=== PATIENT | male | born 1955 | race Caucasian/White ===

== ENCOUNTER 2017-02-19 02:38 | Emergency (ER) | payer MEDICARE, MEDICAID ==
[~2017-02-19] VITALS: Ht 177.8 cm; Wt 102.1 kg
[~2017-02-19 02:38] MED LIST: 'PARAFON FORTE500 M1 PO; ACIPHEX20 MG PO; ASPIRIN DELAYE325 MG PO; ASPIRIN325 MG PO; ATIVAN1 MG PO; BACTRIM DS 8001 TA1 PO; BENTYL10 MG PO; BIAXIN500 MG PO; BLOOD PRESSURE PILL; CEPHALEXIN500 M1 PO; CILOXAN 2.5 ML2.5 ML OPH; CIPRO500 MG PO; CIPRODEX 0.3%-7.5 ML OT; CLINDAMYCIN HC300 MG PO; COMBIVENT1 ARO IH; CORDROL20 MG PO; DOXYCYCLINE MO100 MG PO; FLEXERIL10 MG PO; FLONASE ALLERG9.9 ML NAS; GLUCOPHAGE500 MG PO; HYDROCODONE BIT1 T11 PO; IBUPROFEN 30 M800 MG PO; KEFLEX500 MG PO; KETOROLAC10 MG PO; LEVOFLOXACIN500 MG PO; MEDROL DOSEPAK4 MG PO; METFORMIN500 MG PO; NAPROSYN500 MG PO; NORCO 5-325 TA1 EACH PO; NOVOLIN R100 U/ML IJ; PERCOCET 325 MG1 TA2 PO; PERCOCET 325 MG1 TAB PO; PRILOSEC40 MG PO; PROAIR HFA0.09 MG/AC IH; PROTONIX40 MG PO; ROBITUSSIN AC 110 ML PO; ROBITUSSIN-AC480 ML PO; SILVADENE1% TP; TRAMADOL HCL50 MG PO; TRAZODONE100 MG PO; TRICOR48 MG PO; VANCOMYCIN HYDRO1 G1 IV; VENTOLIN 02.5 MG/3 M INH; VIBRAMYCIN100 MG PO; VICODIN ES 7501 TA1 PO; VICTOZA 3-PAK6 MG/ML SC; VICTOZA6 MG/ML SC; VYTORIN 10 MG-11 TA1; XANAX0.25 MG PO; XANAX1 MG PO; ZANTAC 150150 MG PO; ZANTAC150 MG PO; ZESTORETIC 12.51 TA2 PO; ZITHROMAX TRI-500 MG PO; ZITHROMAX Z PA250 MG PO; ZITHROMAX250 MG PO; ZOFRAN ODT4 MG SL; ZYRTEC10 MG PO
[2017-02-19 02:44] VITALS: BP 151/91
[2017-02-19] MEDS ORDERED: HYDROCODONE BIT1 T11 PO (03:58)
[2017-02-19] MEDS ORDERED: NAPROSYN500 MG PO (03:58)
== END 2017-02-19 04:15 | disposition home or self-care (01) ==
LOC: ED 02:38
DX: M26.69 Other specified disorders of temporomandibular joint (principal); E11.9 Type 2 diabetes mellitus without complications; F17.200 Nicotine dependence, unspecified, uncomplicated; Z90.49 Acquired absence of other specified parts of digestive tract; Z96.652 Presence of left artificial knee joint; Z79.899 Other long term (current) drug therapy; Z88.0 Allergy status to penicillin

== ENCOUNTER → 2017-02-28 | Outpatient (CLI) | payer MEDICARE, MEDICAID ==
[~2017-02-28] MED LIST changes: +? CHOLESTEROL MED PO; +ASPIRIN FOR CHI81 MG PO; +TRIAVIL PO
--- NOTE | ~2017-02-28 | ST ---
[place], [place] EXERCISE STRESS TEST REPORT NAME: LISA ARAUJO UNIT #: [id number] ROOM: DOCTOR: ANNE ACEVEDO,WILLIAN Strong BIRTHDATE: [birth year] DOS: The patient is a 61-year-old gentleman, 68 inches tall, weighing 232 pounds. The patient's stress test was performed because he is going for surgery under general anesthesia and he has abnormal baseline EKG. The patient's baseline EKG showed single PVC, some T-wave inversion in lateral leads. Normal cardiac axis. Heart rate was 64 beats per minute. During the Lexiscan infusion, which was 0.4 mg, followed by Cardiolite injection 40 seconds after the Lexiscan. The patient's EKGs did not show any significant changes from the baseline. The heart rate ranged between 64-80 beats per minute and blood pressure ranged between 104 systolic over 72 diastolic to 124 systolic over 68 diastolic. Occasional PVCs were observed during the testing phase. IMPRESSION: Normal EKG part of the Lexiscan Cardiolite stress test. Dr. Amna Cline, the bobbin winder tender, to report the nuclear scan later today. WILLIAN RODRÍGUEZ MD CM:STRESS:EXERCISE STRESS TEST REPORT [id number] WILLIAN RODRÍGUEZ MD
== END | disposition home or self-care (01) ==
LOC: CARD 03:12
DX: R94.31 Abnormal electrocardiogram [ECG] [EKG] (principal); R06.02 Shortness of breath; R53.81 Other malaise

== ENCOUNTER 2017-03-08 23:39 | Emergency (ER) | payer MEDICARE, MEDICAID ==
[~2017-03-08] VITALS: Ht 180.3 cm; Wt 104.3 kg
[2017-03-08 23:58] VITALS: BP 145/77
== END 2017-03-09 00:46 | disposition home or self-care (01) ==
LOC: ED 23:39
DX: M79.672 Pain in left foot (principal); R03.0 Elevated blood-pressure reading, without diagnosis of hypertension; F17.200 Nicotine dependence, unspecified, uncomplicated; E11.9 Type 2 diabetes mellitus without complications; G89.29 Other chronic pain; M54.5 Low back pain; Z88.0 Allergy status to penicillin; Z79.82 Long term (current) use of aspirin

== ENCOUNTER 2017-06-29 11:03 | Emergency (ER) | payer MEDICARE, MEDICAID ==
[~2017-06-29] VITALS: Ht 177.8 cm; Wt 105.7 kg
[2017-06-29 11:24] VITALS: BP 160/82
== END 2017-06-29 14:11 | disposition home or self-care (01) ==
LOC: ED 11:03
DX: M17.0 Bilateral primary osteoarthritis of knee (principal); M25.562 Pain in left knee; F17.200 Nicotine dependence, unspecified, uncomplicated; Z96.652 Presence of left artificial knee joint; Z90.49 Acquired absence of other specified parts of digestive tract; Z79.899 Other long term (current) drug therapy; Z79.82 Long term (current) use of aspirin; Z88.0 Allergy status to penicillin

== ENCOUNTER 2017-09-23 13:42 | Emergency (ER) | payer OTHER ==
[~2017-09-23] VITALS: Ht 177.8 cm; Wt 108.9 kg
[2017-09-23 14:58] LABS: BASO % 0.2 % (0.0-1.0); EOS % 0.3 % (1.0-4.0); HEMATOCRIT 46.9 % (42.0-52.0); HEMOGLOBIN 16.1 g/dl (14.0-18.0); LYMPH # 1.4 10*3/uL (1.3-4.4); LYMPH % 10.2 % (27.0-41.0); MEAN CELL VOLUME 86.7 fl (80.0-94.0); MEAN CORPUSCULAR HGB 29.8 pg (27.0-31.0); MEAN CORPUSCULAR HGB CONC 34.3 g/dl (33.0-37.0); MONO # 1.1 10*3/uL (0.1-1.0); MONO % 7.9 % (3.0-9.0); NEUT # 10.8 10*3/uL (2.3-7.9); PLATELET COUNT AUTOMATED 185 10*3/uL (130-400); RED BLOOD COUNT 5.41 10*6/uL (4.50-5.90); RED CELL DISTRI WIDTH 13.7 % (0-14.5); WHITE BLOOD COUNT 13.3 10*3/uL (4.8-10.8)
[2017-09-23 15:30] VITALS: BP 132/74
[2017-09-23 15:38] LABS: ALBUMIN 3.6 gm/dl (3.1-4.5); ALKALINE PHOSPHATASE 54 U/L (45-117); BUN 27 mg/dl (7-24); CHLORIDE 102 mmol/L (98-107); CREATININE 1.34 mg/dL (0.70-1.30); POTASSIUM 3.3 mmol/L (3.5-5.1); SGOT/AST 19 IU/L (3-35); SGPT/ALT 23 U/L (12-78); SODIUM 135 mmol/L (136-145)
[2017-09-23] MEDS ORDERED: CEPHALEXIN500 M1 PO (16:20)
== END 2017-09-23 16:22 | disposition home or self-care (01) ==
LOC: ED 13:42
PROVIDERS: Physician Assistant
DX: L03.115 Cellulitis of right lower limb (principal); F17.200 Nicotine dependence, unspecified, uncomplicated; Z90.49 Acquired absence of other specified parts of digestive tract; Z98.890 Other specified postprocedural states; Z79.899 Other long term (current) drug therapy; Z79.82 Long term (current) use of aspirin; Z88.0 Allergy status to penicillin

== ENCOUNTER 2017-10-18 19:16 | Emergency (ER) | payer OTHER ==
[~2017-10-18] VITALS: Ht 177.8 cm; Wt 108.9 kg
[2017-10-18 19:36] VITALS: BP 170/89
[2017-10-18] MEDS ORDERED: NAPROSYN500 MG PO (20:27)
[2017-10-18] MEDS ORDERED: MEDROL DOSEPAK4 MG PO (20:27)
[2017-10-18] MEDS ORDERED: CYCLOBENZAPRINE10 MG PO (20:27)
== END 2017-10-18 20:34 | disposition home or self-care (01) ==
LOC: ED 19:16
DX: G89.29 Other chronic pain (principal); M25.552 Pain in left hip; F17.200 Nicotine dependence, unspecified, uncomplicated; Z96.652 Presence of left artificial knee joint; Z98.890 Other specified postprocedural states; Z90.49 Acquired absence of other specified parts of digestive tract; Z79.899 Other long term (current) drug therapy; Z88.0 Allergy status to penicillin

== ENCOUNTER 2018-01-13 20:39 | Emergency (ER) | payer OTHER ==
[~2018-01-13] VITALS: Ht 172.7 cm; Wt 108.0 kg
[~2018-01-13 20:39] MED LIST changes: +CYCLOBENZAPRINE10 MG PO
[2018-01-13 22:38] VITALS: BP 165/89
[2018-01-13] MEDS ORDERED: Percocet 325 MG1 TAB PO (23:06)
== END 2018-01-13 23:33 | disposition home or self-care (01) ==
LOC: ED 20:39
DX: S02.31XA Fracture of orbital floor, right side, initial encounter for closed fracture (principal); S02.401A Maxillary fracture, unspecified side, initial encounter for closed fracture; S02.2XXA Fracture of nasal bones, initial encounter for closed fracture; S00.81XA Abrasion of other part of head, initial encounter; Z23 Encounter for immunization; Z96.652 Presence of left artificial knee joint; Z90.49 Acquired absence of other specified parts of digestive tract; Z79.899 Other long term (current) drug therapy; Z88.0 Allergy status to penicillin; W21.07XA Struck by softball, initial encounter; Y93.64 Activity, baseball; Y92.89 Other specified places as the place of occurrence of the external cause; Y99.9 Unspecified external cause status

== ENCOUNTER 2019-01-19 23:18 | Emergency (ER) | payer MEDICARE ==
[~2019-01-19] VITALS: Ht 177.8 cm; Wt 113.4 kg
[~2019-01-19 23:18] MED LIST changes: +Percocet 325 MG1 TAB PO; +ZESTORETIC 20-1 EACH PO
[2019-01-19 23:20] VITALS: BP 143/61
[2019-04-05] MEDS ORDERED: PERPHEN-AMITRI1 EACH PO (17:27)
[2019-04-06] MEDS ORDERED: KEFLEX500 M1 PO (15:31)
[2019-04-10] MEDS ORDERED: DOCUSATE SOD100 MG PO (17:25)
[2019-04-10] MEDS ORDERED: KEFLEX500 M1 PO (17:28)
== END 2019-01-20 01:42 | disposition home or self-care (01) ==
LOC: ED 23:18
DX: S80.12XA Contusion of left lower leg, initial encounter (principal); Z79.899 Other long term (current) drug therapy; Z88.0 Allergy status to penicillin; W21.03XA Struck by baseball, initial encounter; Y93.64 Activity, baseball; Y92.89 Other specified places as the place of occurrence of the external cause; Y99.8 Other external cause status

== ENCOUNTER → 2019-04-16 | Outpatient (CLI) | payer OTHER ==
[~2019-04-16] MED LIST changes: +DOCUSATE SOD100 MG PO; +KEFLEX500 M1 PO; +PERPHEN-AMITRI1 EACH PO
[2019-04-16 17:22] LABS: BUN 26 mg/dl (7-24); CHLORIDE 102 mmol/L (98-107); CREATININE 1.33 mg/dL (0.70-1.30); POTASSIUM 4.3 mmol/L (3.5-5.1); SODIUM 132 mmol/L (136-145)
== END | disposition home or self-care (01) ==
LOC: LAB 16:25
PROVIDERS: Internal Medicine
DX: I10 Essential (primary) hypertension (principal)

== ENCOUNTER → 2019-05-27 | Outpatient (CLI) | payer OTHER ==
[~2019-05-27] MED LIST changes: +AMITRIPTYLINE10 MG PO; +HYDROCHLOROTHIA25 M1 PO; +Lantus SC; +NYSTOP60 GM T; +PREDNISONE5 MG PO; +TRAD5TAB1 PO
== END | disposition home or self-care (01) ==
LOC: LAB 15:56
DX: N52.9 Male erectile dysfunction, unspecified (principal)

== ENCOUNTER → 2019-06-16 | Outpatient (CLI) | payer OTHER ==
[2019-06-16 18:25] LABS: BASO % 0.6 % (0.0-1.0); EOS # 0.1 10*3/uL (0.0-0.4); EOS % 1.8 % (1.0-4.0); HEMATOCRIT 49.4 % (42.0-52.0); HEMOGLOBIN 16.6 g/dl (14.0-18.0); LYMPH % 15.1 % (27.0-41.0); MEAN CELL VOLUME 86.7 fl (80.0-94.0); MEAN CORPUSCULAR HGB 29.1 pg (27.0-31.0); MEAN CORPUSCULAR HGB CONC 33.6 g/dl (33.0-37.0); MEAN PLATELET VOLUME 10.9 fl (9.6-12.3); MONO # 0.1 10*3/uL (0.1-1.0); NEUT # 5.2 10*3/uL (2.3-7.9); NEUT % 79.6 % (47.0-73.0); PLATELET COUNT AUTOMATED 227 10*3/uL (130-400); WHITE BLOOD COUNT 6.6 10*3/uL (4.8-10.8)
[2019-06-18 07:05] LABS: HEPATITIS B SURFACE AG Negative (Negative); HEPATITIS C VIRUS ANTIBODY <0.1 s/co (0.0-0.9)
[2019-06-18 08:07] LABS: RHEUMATOID ARTHRITIS FACTOR 10.6 IU/mL (0.0-13.9)
[2019-06-18 12:10] LABS: ANTI-RNP ANTIBODIES <0.2 AI (0.0-0.9)
[2019-06-18 22:05] LABS: CCP ANTIBODIES IGG/IGA 12 units (0-19)
[2019-06-19 03:05] LABS: LUPUS DRVVT 46.5 sec (0.0-47.0); PTT-LA 35.5 sec (0.0-51.9)
[2019-06-19 04:07] LABS: LUPUS REFLEX INTERPRETATION Comment: (.)
[2019-06-22 13:09] LABS: HLA-B27 ANTIGEN Positive (.)
== END | disposition home or self-care (01) ==
LOC: LAB 16:57
PROVIDERS: Orthopaedic Surgery
DX: M51.36 Other intervertebral disc degeneration, lumbar region (principal); M25.50 Pain in unspecified joint; M12.88 Other specific arthropathies, not elsewhere classified, other specified site; Z90.49 Acquired absence of other specified parts of digestive tract

== ENCOUNTER 2019-07-13 17:20 | Inpatient (IN) | payer OTHER ==
[~2019-07-13] VITALS: Ht 179.1 cm; Wt 123.8 kg
[~2019-07-13 17:20] MED LIST changes: -AMITRIPTYLINE10 MG PO; -HYDROCHLOROTHIA25 M1 PO; -Lantus SC; -NYSTOP60 GM T; -PREDNISONE5 MG PO; -TRAD5TAB1 PO
[2019-07-13 17:24] VITALS: BP 159/80
[2019-07-13 17:57] LABS: BASO # 0.1 10*3/uL (0.0-0.1); BASO % 0.9 % (0.0-1.0); HEMATOCRIT 48.8 % (42.0-52.0); HEMOGLOBIN 16.7 g/dl (14.0-18.0); LYMPH # 2.2 10*3/uL (1.3-4.4); MEAN CELL VOLUME 86.1 fl (80.0-94.0); MEAN CORPUSCULAR HGB 29.5 pg (27.0-31.0); MEAN CORPUSCULAR HGB CONC 34.2 g/dl (33.0-37.0); MEAN PLATELET VOLUME 10.2 fl (9.6-12.3); MONO # 0.6 10*3/uL (0.1-1.0); NEUT # 4.7 10*3/uL (2.3-7.9); NEUT % 54.3 % (47.0-73.0); PLATELET COUNT AUTOMATED 238 10*3/uL (130-400); RED BLOOD COUNT 5.67 10*6/uL (4.50-5.90); RED CELL DISTRI WIDTH 13.1 % (0-14.5); WHITE BLOOD COUNT 8.6 10*3/uL (4.8-10.8)
[2019-07-13 18:12] LABS: ALBUMIN 3.6 gm/dl (3.1-4.5); ALKALINE PHOSPHATASE 63 U/L (45-117); BUN 28 mg/dl (7-24); CHLORIDE 101 mmol/L (98-107); LIPASE 113 U/L (73-393); POTASSIUM 4.2 mmol/L (3.5-5.1); SGOT/AST 30 IU/L (3-35); SODIUM 133 mmol/L (136-145); TOTAL PROTEIN 7.1 gm/dL (6.4-8.2)
[2019-07-13 18:13] LABS: TROPONIN I < 0.015 ng/ml (<0.045)
[2019-07-13 18:14] LABS: SGPT/ALT 67 U/L (12-78)
--- NOTE | 2019-07-13 18:17 | NUR ---
DR CESAR AWARE OF CRITICAL LACTIC ACID 2.6
[2019-07-13 18:23] LABS: ACT PARTIAL THROMBO TIME 24.5 SECONDS (20.0-32.1)
[2019-07-13 20:50] VITALS: BP 133/68
--- NOTE | 2019-07-13 20:50 | NUR ---
Time: 2049 A 63 year old MALE admitted to 5E under services of DR. ANNE ACEVEDO,WILLIAN Maza Pt. arrived via bed from ER. Chief complaint: FLORES'S PALSY,HYPERGLYCEMIA. BRENDON FERRELL
--- NOTE | 2019-07-13 21:15 | NUR ---
SITTING UP AT SIDE OF BED. BSG-336, SEE EMAR. CALL LIGHT IN REACH. SKIN W/D.
--- NOTE | 2019-07-13 21:47 | NUR ---
DR. RODRÍGUEZ CALLED ORDERS TAKEN AND REVIEWED.
[2019-07-13] MEDS ORDERED: HYDROCHLOROTHIA25 M1 PO (21:56)
[2019-07-13] MEDS ORDERED: AMITRIPTYLINE10 MG PO (21:56)
--- NOTE | 2019-07-13 22:21 | NUR ---
CALLED DR. GONZALEZ SHE IS EDGE FINISHER FOR C/O HEADACHE, ORDERS TAKEN AND REVIEWED.
--- NOTE | 2019-07-13 22:28 | NUR ---
PT C/O HEADACHE, RATES PAIN 5 ON PAIN SCALE 0-10. MEDICATED WITH TYLENOL PO PER PRN ORDER, SEE EMAR. ALSO TOLERATED INSULIN SUBCUTANEOUS INJECTION. CALL LIGHT IN REACH.
[2019-07-14] VITALS: BP 130/74
--- NOTE | 2019-07-14 00:07 | NUR ---
NO S/S OF DISTRESS NOTED AT THIS TIME. PATIENT REQUESTING ANOTHER PILLOW, AND SOMETHING TO DRINK. BLOOD GLUCOSE 399. ASSESSMENT IS COMPLETE, WILL CONTINUE TO MONITOR, SEE SHIFT ASSESSMENT. Neurological: awake,alert,oriented X3 Respiratory: NONLABORED, ROOM AIR Breath sounds: DIMINISHED T/O Cough: NONE PER ASSESSMENT Cardiovascular: HRR, DENIES CP/PRESSURE, NO EDEMA, PPP Gastrointestinal: NORMO X4 QUADS, DENIES N/V/D/C, FIRM, NONTENDER, OBESE Genito/Urinary: DENIES DYSURIA Musculoskeketal: AMBULATORY, WOUND LEFT PHILLIPS GIOVANNI BLACK
--- NOTE | 2019-07-14 01:34 | NUR ---
PRN AMBIEN NOT GIVEN AT THIS TIME, PATIENT APPEARS TO BE SLEEPING. RETURNED TO [facility].
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
--- NOTE | 2019-07-14 06:40 | NUR ---
PATIENT AWAKENS EASILY FOR BEDSIDE FINGER STICK. BLOOD GLUCOSE 365. CALL LIGHT IS WITHIN REACH.
[2019-07-14 08:00] VITALS: BP 120/75
[2019-07-14 12:00] VITALS: BP 136/84
--- NOTE | 2019-07-14 13:02 | NUR ---
Line Haul Owner Operator in to talk to patient. Patient states lives at HOME with ALONE. There are NO steps in the home. Physician: ANNE [facility]acy: [facility] House health services: NONE Patient's level of ADLs: INDEPENDENT Patient has working utilities: YES DME: NONE Follow-up physician's appointment after d/c: PREFERS TO MAKE OWN FOLLOW UP AFTER DISCHARGE Does patient want to access PORTAL?: NO Discharge plan PT STATES HE LIVES ALONE AT HOME AND IS INDEPENDENT IN HIS CARE. DENIES HE WILL HAVE ANY NEEDS ON DISCHARGE. PLAN IS TO RETURN HOME. WILL CONTINUE TO FOLLOW. STATES HIS CAR IS IN ER AND HE WILL DRIVE SELF HOME.. VERA RODRIGUEZ
[2019-07-14 16:00] VITALS: BP 153/80
--- NOTE | 2019-07-14 16:30 | NUR ---
BS 466. GAVE 20 UNITS, PT ASYMPTOMATIC. WILL RECHECK IN 2 HRS.
--- NOTE | 2019-07-14 18:10 | NUR ---
RECHECKED PTS BS. BS WAS 512. TRIED TO CALL TO INFORM AND GOT NO ANSWER. WILL TRY AGAIN.
--- NOTE | 2019-07-14 18:30 | NUR ---
TALKED TO REGARDING BS OF 513. TO GIUE 20 UNITS PER SLIDING SCALE AND ADDITIONAL 10 UNITS IV NOW. WILL RECHECK BS. PT ASYMPTOMATIC.
[2019-07-14 20:00] VITALS: BP 133/73
--- NOTE | 2019-07-14 20:50 | NUR ---
SPOKE TO REGARDING BLOOD SUGAR OF 520. SEE NEW ORDERS. WILL RECHECK BS. CALL LIGHT WITHIN REACH.
--- NOTE | 2019-07-14 22:35 | NUR ---
B3 RECHECK 423. NOTHING TO BE GIVEN AT THIS TIME WILL RECHECK AND CONTINUE TO MONITOR. PT ASYMPTOMATIC. CALL LIGHT WITHIN REACH.
--- NOTE | 2019-07-14 23:00 | NUR ---
ASSUMED CARE FOR THIS PT AT THIS TIME. PT AMBULATING IN HALLWAY.
--- NOTE | 2019-07-14 23:53 | NUR ---
PT MEDICATED W/TYLENOL FOR C/O H/A 11/22. WILL MONITOR FOR EFFECTIVENESS.
[2019-07-15] VITALS: BP 96/58
[2019-07-15 08:00] VITALS: BP 131/71
--- NOTE | 2019-07-15 10:41 | NUR ---
PT CONTINUES TO DENY HOME NEEDS. STATES HE WILL RETURN HOME WHEN MEDICALLY STABLE. WILL CONTINUE TO FOLLOW.
[2019-07-15 12:00] VITALS: BP 137/83
[2019-07-15 16:00] VITALS: BP 126/60
[2019-07-15 20:00] VITALS: BP 123/78
[2019-07-16] VITALS: BP 114/63
--- NOTE | 2019-07-16 02:50 | NUR ---
PRN TYLENOL ADMINISTERED FOR PT C/O HEADACHE RATED A 6/10 ON THE PAIN SCALE. WILL CONTINUE TO MONITOR.
--- NOTE | 2019-07-16 03:06 | NUR ---
24 HOUR CHART CHECK COMPLETE.
--- NOTE | 2019-07-16 03:30 | NUR ---
PT ASLEEP AT THIS TIME. NO SIGNS OF DISCOMFORT OR DISTRESS NOTED.
[2019-07-16 08:00] VITALS: BP 142/63
[2019-07-16 12:00] VITALS: BP 107/87
--- NOTE | 2019-07-16 12:33 | NUR ---
PT CONTINUES TO DENY NEEDS ON DISCHARGE. PLANS TO RETURN HOME WHEN MEDICALLY STABLE.
--- NOTE | 2019-07-16 13:29 | NUR ---
TYLENOL 650 MG GIVEN FOR C/O HEADACHE.
[2019-07-16 16:00] VITALS: BP 131/54
--- NOTE | 2019-07-16 18:30 | NUR ---
DRESSING CHANGE TO LLE COMPLETED PER PHYSICIAN ORDER.
[2019-07-16 20:00] VITALS: BP 141/79
--- NOTE | 2019-07-16 20:00 | NUR ---
24 HOUR CHART CHECK COMPLETE.
--- NOTE | 2019-07-16 20:23 | NUR ---
PRN TYLENOL ADMINISTERED FOR PT C/O RT SIDED EAR PAIN AND H/A RATED A 3/10 ON THE PAIN SCALE. WILL CONTINUE TO MONITOR AND REASSESS.
--- NOTE | 2019-07-16 23:37 | NUR ---
SARA MIRAMONTES ADMINISTERED FOR PT C/O INSOMNIA.
[2019-07-17] VITALS: BP 145/77
[2019-07-17 08:00] VITALS: BP 114/58
--- NOTE | 2019-07-17 08:49 | NUR ---
DR GONZALEZ ROUNDED AND ORDERS RECIEVED.
[2019-07-17 12:00] VITALS: BP 124/53
[2019-07-17 16:00] VITALS: BP 110/51
[2019-07-17 20:00] VITALS: BP 110/58
--- NOTE | 2019-07-17 20:00 | NUR ---
24 HOUR CHART CHECK COMPLETE.
[2019-07-18] VITALS: BP 112/61
--- NOTE | 2019-07-18 00:14 | NUR ---
SARA MIRAMONTES ADMINISTERED FOR PT C/O INSOMNIA.
[2019-07-18 06:28] LABS: BASO % 0.3 % (0.0-1.0); EOS # 0.2 10*3/uL (0.0-0.4); EOS % 1.8 % (1.0-4.0); HEMATOCRIT 49.7 % (42.0-52.0); HEMOGLOBIN 16.3 g/dl (14.0-18.0); LYMPH # 3.7 10*3/uL (1.3-4.4); LYMPH % 30.5 % (27.0-41.0); MEAN CELL VOLUME 86.9 fl (80.0-94.0); MEAN CORPUSCULAR HGB 28.5 pg (27.0-31.0); MEAN CORPUSCULAR HGB CONC 32.8 g/dl (33.0-37.0); MONO # 0.9 10*3/uL (0.1-1.0); NEUT # 7.2 10*3/uL (2.3-7.9); NEUT % 58.8 % (47.0-73.0); PLATELET COUNT AUTOMATED 235 10*3/uL (130-400); RED BLOOD COUNT 5.72 10*6/uL (4.50-5.90); RED CELL DISTRI WIDTH 13.2 % (0-14.5); WHITE BLOOD COUNT 12.2 10*3/uL (4.8-10.8)
[2019-07-18 06:52] LABS: BUN 25 mg/dl (7-24); CHLORIDE 101 mmol/L (98-107); CREATININE 1.03 mg/dL (0.70-1.30); POTASSIUM 3.4 mmol/L (3.5-5.1); SODIUM 135 mmol/L (136-145)
[2019-07-18 08:00] VITALS: BP 123/76; BP 131/51
[2019-07-18] MEDS ORDERED: Lantus SC (08:58)
[2019-07-18] MEDS ORDERED: TRAD5TAB1 PO (08:58)
[2019-07-18] MEDS ORDERED: NYSTOP60 GM T (08:58)
[2019-07-18] MEDS ORDERED: PREDNISONE5 MG PO ×2 (08:58→08:59)
--- NOTE | 2019-07-18 11:13 | NUR ---
Discharge instructions reviewed with patient/family. Patient receptive and verbalizes understanding. Follow-up care arranged. Written instructions and perscriptions given to patient/family. OUSMANE WHITE
== END 2019-07-18 11:13 | disposition home or self-care (01) | DRG 74 ==
LOC: ED 17:20 → 5E 19:16 → EDHOLD 19:16 → 5E 20:11
PROVIDERS: Emergency Medicine; Internal Medicine; ADMIT Internal Medicine
DX: G51.0 Bell's palsy (principal); L03.116 Cellulitis of left lower limb; L03.115 Cellulitis of right lower limb; E11.65 Type 2 diabetes mellitus with hyperglycemia; K59.09 Other constipation; F51.04 Psychophysiologic insomnia; N48.1 Balanitis; T38.0X5A Adverse effect of glucocorticoids and synthetic analogues, initial encounter; E66.01 Morbid (severe) obesity due to excess calories; E87.6 Hypokalemia; E78.2 Mixed hyperlipidemia; F41.1 Generalized anxiety disorder; I10 Essential (primary) hypertension; Z91.14 Patient's other noncompliance with medication regimen; Z68.39 Body mass index [BMI] 39.0-39.9, adult; Y92.89 Other specified places as the place of occurrence of the external cause; Z88.0 Allergy status to penicillin

== ENCOUNTER 2019-11-08 14:29 | Inpatient (IN) | payer OTHER ==
[~2019-11-08] VITALS: Ht 180.3 cm; Wt 119.4 kg
[~2019-11-08 14:29] MED LIST changes: +AMITRIPTYLINE10 MG PO; +HYDROCHLOROTHIA25 M1 PO; +Lantus SC; +NYSTOP60 GM T; +PREDNISONE5 MG PO; +TRAD5TAB1 PO
[2019-11-08 14:51] VITALS: BP 144/73
[2019-11-08 16:22] LABS: BASO % 0.5 % (0.0-1.0); EOS # 0.6 10*3/uL (0.0-0.4); EOS % 7.5 % (1.0-4.0); HEMATOCRIT 50.5 % (42.0-52.0); HEMOGLOBIN 16.8 g/dl (14.0-18.0); LYMPH # 2.3 10*3/uL (1.3-4.4); LYMPH % 29.7 % (27.0-41.0); MEAN CELL VOLUME 84.6 fl (80.0-94.0); MEAN CORPUSCULAR HGB 28.1 pg (27.0-31.0); MEAN CORPUSCULAR HGB CONC 33.3 g/dl (33.0-37.0); MEAN PLATELET VOLUME 9.8 fl (9.6-12.3); MONO # 0.5 10*3/uL (0.1-1.0); MONO % 6.9 % (3.0-9.0); NEUT # 4.3 10*3/uL (2.3-7.9); NEUT % 55.1 % (47.0-73.0); PLATELET COUNT AUTOMATED 227 10*3/uL (130-400); RED BLOOD COUNT 5.97 10*6/uL (4.50-5.90); RED CELL DISTRI WIDTH 12.5 % (0-14.5); WHITE BLOOD COUNT 7.9 10*3/uL (4.8-10.8)
[2019-11-08 16:29] VITALS: BP 138/70
[2019-11-08 16:38] LABS: ALBUMIN 3.8 gm/dl (3.1-4.5); ALKALINE PHOSPHATASE 62 U/L (45-117); BUN 25 mg/dl (7-24); CHLORIDE 102 mmol/L (98-107); CREATININE 1.14 mg/dL (0.70-1.30); LIPASE 95 U/L (73-393); POTASSIUM 3.8 mmol/L (3.5-5.1); SGOT/AST 30 IU/L (3-35); SGPT/ALT 59 U/L (12-78); SODIUM 134 mmol/L (136-145); TOTAL PROTEIN 7.9 gm/dL (6.4-8.2)
[2019-11-08 16:39] LABS: TROPONIN I < 0.015 ng/ml (<0.045)
[2019-11-08 17:33] LABS: BILIRUBIN 1+ (NEGATIVE); BLOOD NEGATIVE (NEGATIVE); CLARITY CLEAR (CLEAR); COLOR YELLOW (YELLOW); GLUCOSE TRACE (NEGATIVE); KETONE NEGATIVE (NEGATIVE); LEUKO ESTERASE NEGATIVE (NEGATIVE); NITRITE NEGATIVE (NEGATIVE); SPECIFIC GRAVITY 1.025 (1.005-1.030); UROBILINOGEN 0.2 E.U./dl (0.2-1.0)
[2019-11-08 17:34] LABS: BACTERIA TRACE
[2019-11-08 18:40] VITALS: BP 124/86
[2019-11-08 18:57] VITALS: BP 124/86
[2019-11-08] MEDS ORDERED: VIAGRA50 MG PO (19:32)
[2019-11-08] MEDS ORDERED: METFORMIN HYD1000 MG PO (19:34)
[2019-11-08] MEDS ORDERED: LANTUS SOL100 UNIT/1 SC (19:34)
[2019-11-08] MEDS ORDERED: CELECOXIB200 M1 PO (19:34)
[2019-11-08 23:56] VITALS: BP 153/90; BP 153/91
[2019-11-09 08:00] VITALS: BP 151/61
[2019-11-09 12:00] VITALS: BP 166/84
[2019-11-09 16:00] VITALS: BP 134/57
[2019-11-09 20:00] VITALS: BP 122/76; BP 170/78
[2019-11-10] VITALS: BP 144/81
[2019-11-10 06:21] LABS: BASO % 0.1 % (0.0-1.0); EOS % 0.1 % (1.0-4.0); HEMATOCRIT 45.7 % (42.0-52.0); HEMOGLOBIN 14.9 g/dl (14.0-18.0); LYMPH % 20.5 % (27.0-41.0); MEAN CELL VOLUME 86.6 fl (80.0-94.0); MEAN CORPUSCULAR HGB 28.2 pg (27.0-31.0); MEAN CORPUSCULAR HGB CONC 32.6 g/dl (33.0-37.0); MEAN PLATELET VOLUME 9.6 fl (9.6-12.3); MONO # 0.6 10*3/uL (0.1-1.0); NEUT % 72.6 % (47.0-73.0); PLATELET COUNT AUTOMATED 230 10*3/uL (130-400); RED BLOOD COUNT 5.28 10*6/uL (4.50-5.90); RED CELL DISTRI WIDTH 12.8 % (0-14.5); WHITE BLOOD COUNT 9.7 10*3/uL (4.8-10.8)
[2019-11-10 06:56] LABS: BUN 23 mg/dl (7-24); CHLORIDE 102 mmol/L (98-107); CREATININE 1.16 mg/dL (0.70-1.30); POTASSIUM 4.2 mmol/L (3.5-5.1); SODIUM 138 mmol/L (136-145)
[2019-11-10 08:00] VITALS: BP 131/76
[2019-11-10 16:00] VITALS: BP 150/77
[2019-11-11] VITALS: BP 143/68
[2019-11-11 08:00] VITALS: BP 107/50
[2019-11-11] MEDS ORDERED: OZEMPIC0.25 MG/01 SQ (08:42)
[2019-11-11] MEDS ORDERED: CIPRO500 MG PO (08:42)
[2019-11-11] MEDS ORDERED: AMARYL4 MG PO (08:46)
== END 2019-11-11 09:31 | disposition home or self-care (01) | DRG 178 ==
LOC: ED 14:29 → 5E 17:54 → EDHOLD 17:54 → 5E 18:11
PROVIDERS: Physician Assistant; ADMIT Internal Medicine
DX: J15.6 Pneumonia due to other Gram-negative bacteria (principal); J44.1 Chronic obstructive pulmonary disease with (acute) exacerbation; E87.2 Acidosis; J44.0 Chronic obstructive pulmonary disease with (acute) lower respiratory infection; E11.65 Type 2 diabetes mellitus with hyperglycemia; G51.0 Bell's palsy; I10 Essential (primary) hypertension; E78.2 Mixed hyperlipidemia; J44.9 Chronic obstructive pulmonary disease, unspecified; K21.9 Gastro-esophageal reflux disease without esophagitis; F41.9 Anxiety disorder, unspecified; T38.0X5A Adverse effect of glucocorticoids and synthetic analogues, initial encounter; Y92.89 Other specified places as the place of occurrence of the external cause; Z88.0 Allergy status to penicillin; Z79.899 Other long term (current) drug therapy

== ENCOUNTER → 2019-11-18 | Outpatient (CLI) | payer OTHER ==
[~2019-11-18] MED LIST changes: +AMARYL4 MG PO; +CELECOXIB200 M1 PO; +LANTUS SOL100 UNIT/1 SC; +METFORMIN HYD1000 MG PO; +OZEMPIC0.25 MG/01 SQ; +VIAGRA50 MG PO
[2019-11-18 22:18] LABS: BASO # 0.1 10*3/uL (0.0-0.1); BASO % 0.6 % (0.0-1.0); EOS # 0.4 10*3/uL (0.0-0.4); EOS % 3.8 % (1.0-4.0); HEMATOCRIT 49.1 % (42.0-52.0); HEMOGLOBIN 16.4 g/dl (14.0-18.0); LYMPH # 2.1 10*3/uL (1.3-4.4); LYMPH % 20.3 % (27.0-41.0); MEAN CELL VOLUME 87.1 fl (80.0-94.0); MEAN CORPUSCULAR HGB 29.1 pg (27.0-31.0); MEAN CORPUSCULAR HGB CONC 33.4 g/dl (33.0-37.0); MEAN PLATELET VOLUME 9.9 fl (9.6-12.3); MONO # 0.8 10*3/uL (0.1-1.0); MONO % 7.7 % (3.0-9.0); NEUT # 6.7 10*3/uL (2.3-7.9); NEUT % 66.7 % (47.0-73.0); PLATELET COUNT AUTOMATED 315 10*3/uL (130-400); RED BLOOD COUNT 5.64 10*6/uL (4.50-5.90); RED CELL DISTRI WIDTH 12.8 % (0-14.5); WHITE BLOOD COUNT 10.1 10*3/uL (4.8-10.8)
[2019-11-18 22:53] LABS: ALBUMIN 3.6 gm/dl (3.1-4.5); CREATININE 1.48 mg/dL (0.70-1.30); FREE T4 0.94 ng/dl (0.76-1.46); POTASSIUM 3.8 mmol/L (3.5-5.1)
[2019-11-18 22:59] LABS: VITAMIN D, 25-HYDROXY 17.6 ng/mL (30-100)
[2019-11-18 23:02] LABS: THYROID STIM HORMONE (HS) 1.18 uIU/ml (0.358-4.75)
[2019-11-18 23:37] LABS: TOTAL PROTEIN 7.3 gm/dL (6.4-8.2)
== END | disposition home or self-care (01) ==
LOC: LAB 21:59
PROVIDERS: Internal Medicine
DX: Z12.5 Encounter for screening for malignant neoplasm of prostate (principal); E78.2 Mixed hyperlipidemia; E11.65 Type 2 diabetes mellitus with hyperglycemia; I10 Essential (primary) hypertension; E55.9 Vitamin D deficiency, unspecified; N52.9 Male erectile dysfunction, unspecified; R35.0 Frequency of micturition; Z00.00 Encounter for general adult medical examination without abnormal findings

== ENCOUNTER 2020-02-12 00:45 | Emergency (ER) | payer OTHER ==
[~2020-02-12] VITALS: Wt 115.7 kg
[2020-02-12 00:53] VITALS: BP 117/97
[2020-02-12] MEDS ORDERED: CLARITIN10 MG PO (01:08)
[2020-02-12] MEDS ORDERED: FLONASE ALLERG9.9 ML NAS (01:08)
== END 2020-02-12 01:24 | disposition home or self-care (01) ==
LOC: ED 00:45
DX: H92.01 Otalgia, right ear (principal); I10 Essential (primary) hypertension; K21.9 Gastro-esophageal reflux disease without esophagitis; E11.9 Type 2 diabetes mellitus without complications; F17.200 Nicotine dependence, unspecified, uncomplicated; Z86.73 Personal history of transient ischemic attack (TIA), and cerebral infarction without residual deficits; Z88.0 Allergy status to penicillin; Z88.8 Allergy status to other drugs, medicaments and biological substances; Z79.899 Other long term (current) drug therapy; Z79.4 Long term (current) use of insulin

== ENCOUNTER → 2020-09-12 | Outpatient (CLI) | payer OTHER ==
[~2020-09-12] MED LIST changes: +CLARITIN10 MG PO
[2020-09-12 17:16] LABS: ALBUMIN 3.7 gm/dl (3.1-4.5); ALKALINE PHOSPHATASE 76 U/L (45-117); BUN 23 mg/dl (7-24); CHLORIDE 102 mmol/L (98-107); CREATININE 0.99 mg/dL (0.70-1.30); POTASSIUM 4.4 mmol/L (3.5-5.1); SGOT/AST 34 IU/L (3-35); SGPT/ALT 72 U/L (12-78); SODIUM 135 mmol/L (136-145); TOTAL PROTEIN 7.4 gm/dL (6.4-8.2)
== END | disposition home or self-care (01) ==
LOC: LAB 16:30
PROVIDERS: ATTEND Orthopaedic Surgery
DX: Z79.899 Other long term (current) drug therapy (principal); Z79.1 Long term (current) use of non-steroidal anti-inflammatories (NSAID)

== ENCOUNTER → 2020-10-27 | Outpatient (CLI) | payer MEDICARE ==
[2020-10-27 15:25] LABS: BASO # 0.1 10*3/uL (0.0-0.1); BASO % 0.6 % (0.0-1.0); EOS # 0.8 10*3/uL (0.0-0.4); EOS % 9.2 % (1.0-4.0); HEMATOCRIT 53.9 % (42.0-52.0); LYMPH # 2.2 10*3/uL (1.3-4.4); LYMPH % 25.3 % (27.0-41.0); MEAN CELL VOLUME 86.8 fl (80.0-94.0); MEAN CORPUSCULAR HGB CONC 33.4 g/dl (33.0-37.0); MEAN PLATELET VOLUME 10.4 fl (9.6-12.3); MONO # 0.6 10*3/uL (0.1-1.0); MONO % 7.2 % (3.0-9.0); NEUT # 4.9 10*3/uL (2.3-7.9); NEUT % 57.5 % (47.0-73.0); PLATELET COUNT AUTOMATED 266 10*3/uL (130-400); RED BLOOD COUNT 6.21 10*6/uL (4.50-5.90); RED CELL DISTRI WIDTH 13.2 % (0-14.5); WHITE BLOOD COUNT 8.6 10*3/uL (4.8-10.8)
[2020-10-27 15:32] LABS: ALBUMIN 3.9 gm/dl (3.1-4.5); BUN 18 mg/dl (7-24); CHLORIDE 105 mmol/L (98-107); POTASSIUM 4.1 mmol/L (3.5-5.1); SGOT/AST 21 IU/L (3-35); SGPT/ALT 52 U/L (12-78); SODIUM 134 mmol/L (136-145)
[2020-10-27 15:42] LABS: ALKALINE PHOSPHATASE 70 U/L (45-117); T3 UPTAKE 36 % (31-39); THYROXINE (T4) TOTAL 6.3 ug/dl (4.5-12.1); TOTAL PROTEIN 7.6 gm/dL (6.4-8.2)
[2020-10-28 09:07] LABS: FOLLICLE STIMULATING HORMONE 37.6 mIU/mL (1.5-12.4); LUTEINIZING HORMONE 15.5 mIU/mL (1.7-8.6); PROGESTERONE 0.1 ng/mL (0.0-0.5); PROLACTIN 10.7 ng/mL (4.0-15.2)
== END | disposition home or self-care (01) ==
LOC: US 13:30 → LAB 13:41
PROVIDERS: ATTEND Urology
DX: Z12.5 Encounter for screening for malignant neoplasm of prostate (principal); R53.82 Chronic fatigue, unspecified; N28.89 Other specified disorders of kidney and ureter; E29.1 Testicular hypofunction

== ENCOUNTER → 2020-11-29 | Outpatient (CLI) | payer MEDICARE ==
[2020-11-29 11:24] LABS: BASO # 0.1 10*3/uL (0.0-0.1); BASO % 0.7 % (0.0-1.0); EOS % 7.8 % (1.0-4.0); HEMATOCRIT 52.3 % (42.0-52.0); LYMPH # 3.1 10*3/uL (1.3-4.4); LYMPH % 25.3 % (27.0-41.0); MEAN CELL VOLUME 86.3 fl (80.0-94.0); MEAN CORPUSCULAR HGB 28.9 pg (27.0-31.0); MEAN CORPUSCULAR HGB CONC 33.5 g/dl (33.0-37.0); MEAN PLATELET VOLUME 9.5 fl (9.6-12.3); MONO % 8.5 % (3.0-9.0); PLATELET COUNT AUTOMATED 266 10*3/uL (130-400); RED BLOOD COUNT 6.06 10*6/uL (4.50-5.90); RED CELL DISTRI WIDTH 12.9 % (0-14.5); WHITE BLOOD COUNT 12.2 10*3/uL (4.8-10.8)
[2020-11-29 12:00] LABS: ALKALINE PHOSPHATASE 77 U/L (45-117); BUN 27 mg/dl (7-24); CHLORIDE 104 mmol/L (98-107); CREATININE 1.34 mg/dL (0.70-1.30); SGOT/AST 14 IU/L (3-35); SGPT/ALT 37 U/L (12-78); SODIUM 136 mmol/L (136-145); T3 UPTAKE 38 % (31-39); THYROXINE (T4) TOTAL 6.5 ug/dl (4.5-12.1); TOTAL PROTEIN 7.1 gm/dL (6.4-8.2)
[2020-11-30 08:06] LABS: FOLLICLE STIMULATING HORMONE 32.6 mIU/mL (1.5-12.4); LUTEINIZING HORMONE 16.6 mIU/mL (1.7-8.6); PROGESTERONE <0.1 ng/mL (0.0-0.5); PROLACTIN 24.9 ng/mL (4.0-15.2)
== END | disposition home or self-care (01) ==
LOC: LAB 08:59 → MRI 09:00
PROVIDERS: ATTEND Urology
DX: I67.82 Cerebral ischemia (principal); H74.8X3 Other specified disorders of middle ear and mastoid, bilateral

== ENCOUNTER → 2020-12-07 | Outpatient (CLI) | payer MEDICARE | END | disposition home or self-care (01) | LOC: LAB 16:14 | PROVIDERS: ATTEND Orthopaedic Surgery | DX: R73.9 Hyperglycemia, unspecified (principal) ==

== ENCOUNTER → 2020-12-26 | Outpatient (CLI) | payer MEDICARE ==
[2020-12-26 14:29] LABS: BASO # 0.1 10*3/uL (0.0-0.1); BASO % 0.8 % (0.0-1.0); EOS # 0.9 10*3/uL (0.0-0.4); EOS % 10.9 % (1.0-4.0); HEMATOCRIT 51.8 % (42.0-52.0); LYMPH # 2.4 10*3/uL (1.3-4.4); LYMPH % 27.8 % (27.0-41.0); MEAN CELL VOLUME 86.8 fl (80.0-94.0); MEAN CORPUSCULAR HGB 29.5 pg (27.0-31.0); MEAN PLATELET VOLUME 9.7 fl (9.6-12.3); MONO # 0.6 10*3/uL (0.1-1.0); NEUT # 4.5 10*3/uL (2.3-7.9); NEUT % 53.1 % (47.0-73.0); PLATELET COUNT AUTOMATED 255 10*3/uL (130-400); RED BLOOD COUNT 5.97 10*6/uL (4.50-5.90); RED CELL DISTRI WIDTH 12.8 % (0-14.5); WHITE BLOOD COUNT 8.5 10*3/uL (4.8-10.8)
[2020-12-26 15:02] LABS: ALBUMIN 3.9 gm/dl (3.1-4.5); ALKALINE PHOSPHATASE 65 U/L (45-117); BUN 23 mg/dl (7-24); CHLORIDE 105 mmol/L (98-107); CREATININE 0.99 mg/dL (0.70-1.30); POTASSIUM 3.9 mmol/L (3.5-5.1); SGOT/AST 17 IU/L (3-35); SGPT/ALT 31 U/L (12-78); SODIUM 137 mmol/L (136-145); T3 UPTAKE 32 % (31-39); THYROXINE (T4) TOTAL 6.9 ug/dl (4.5-12.1); TOTAL PROTEIN 7.4 gm/dL (6.4-8.2)
[2020-12-27 09:07] LABS: FOLLICLE STIMULATING HORMONE 32.4 mIU/mL (1.5-12.4); LUTEINIZING HORMONE 16.4 mIU/mL (1.7-8.6); PROGESTERONE <0.1 ng/mL (0.0-0.5); PROLACTIN 21.5 ng/mL (4.0-15.2)
== END | disposition home or self-care (01) ==
LOC: LAB 14:14
PROVIDERS: ATTEND Urology
DX: R53.82 Chronic fatigue, unspecified (principal)

== ENCOUNTER → 2021-02-20 | Outpatient (CLI) | payer MEDICARE ==
[2021-02-20 15:31] LABS: BASO # 0.1 10*3/uL (0.0-0.1); BASO % 0.9 % (0.0-1.0); EOS # 0.9 10*3/uL (0.0-0.4); EOS % 9.6 % (1.0-4.0); HEMATOCRIT 55.5 % (42.0-52.0); LYMPH # 2.2 10*3/uL (1.3-4.4); LYMPH % 23.7 % (27.0-41.0); MEAN CELL VOLUME 89.2 fl (80.0-94.0); MEAN CORPUSCULAR HGB 29.7 pg (27.0-31.0); MEAN CORPUSCULAR HGB CONC 33.3 g/dl (33.0-37.0); MONO # 0.7 10*3/uL (0.1-1.0); MONO % 7.7 % (3.0-9.0); NEUT # 5.3 10*3/uL (2.3-7.9); NEUT % 57.3 % (47.0-73.0); PLATELET COUNT AUTOMATED 244 10*3/uL (130-400); RED BLOOD COUNT 6.22 10*6/uL (4.50-5.90); RED CELL DISTRI WIDTH 14.1 % (0-14.5); WHITE BLOOD COUNT 9.3 10*3/uL (4.8-10.8)
[2021-02-20 16:02] LABS: ALBUMIN 3.9 gm/dl (3.1-4.5); ALKALINE PHOSPHATASE 67 U/L (45-117); BUN 25 mg/dl (7-24); CHLORIDE 105 mmol/L (98-107); CREATININE 1.23 mg/dL (0.70-1.30); POTASSIUM 4.2 mmol/L (3.5-5.1); SGOT/AST 23 IU/L (3-35); SGPT/ALT 45 U/L (12-78); SODIUM 134 mmol/L (136-145); TOTAL PROTEIN 7.8 gm/dL (6.4-8.2)
== END ==
LOC: LAB 15:08
PROVIDERS: ATTEND Urology
DX: Z12.5 Encounter for screening for malignant neoplasm of prostate (principal); D40.0 Neoplasm of uncertain behavior of prostate; E11.9 Type 2 diabetes mellitus without complications

== ENCOUNTER → 2021-04-17 | Outpatient (CLI) | payer MEDICARE | END | disposition home or self-care (01) | LOC: RESCLI 01:03 | PROVIDERS: ATTEND Student in an Organized Health Care Education/Training Program | DX: H90.3 Sensorineural hearing loss, bilateral (principal); I10 Essential (primary) hypertension; E78.2 Mixed hyperlipidemia; E55.9 Vitamin D deficiency, unspecified; E11.65 Type 2 diabetes mellitus with hyperglycemia; E78.1 Pure hyperglyceridemia; N52.9 Male erectile dysfunction, unspecified; R10.13 Epigastric pain; G62.9 Polyneuropathy, unspecified; Z79.4 Long term (current) use of insulin; Z88.0 Allergy status to penicillin; F17.210 Nicotine dependence, cigarettes, uncomplicated; Z90.49 Acquired absence of other specified parts of digestive tract; Z98.890 Other specified postprocedural states; Z79.82 Long term (current) use of aspirin; Z79.899 Other long term (current) drug therapy ==

== ENCOUNTER → 2021-04-25 | Outpatient (CLI) | payer MEDICARE ==
[2021-04-25 15:51] LABS: ALKALINE PHOSPHATASE 57 U/L (45-117); BUN 22 mg/dl (7-24); CHLORIDE 103 mmol/L (98-107); CREATININE 1.09 mg/dL (0.70-1.30); POTASSIUM 3.8 mmol/L (3.5-5.1); SGOT/AST 24 IU/L (3-35); SGPT/ALT 43 U/L (12-78); SODIUM 135 mmol/L (136-145); TOTAL PROTEIN 7.6 gm/dL (6.4-8.2); TRIGLYCERIDES 394 mg/dl (<150)
[2021-04-26 08:08] LABS: LDL CHOLESTEROL (DIRECT) 80 mg/dL (0-99)
[2021-04-29 22:05] LABS: MONOMERIC PROLACTIN (ICMA) 16.1 ng/mL (.); PROLACTIN,SERUM (ICMA) 17.8 ng/mL (.)
== END | disposition home or self-care (01) ==
LOC: LAB 14:49
PROVIDERS: ATTEND Internal Medicine Endocrinology, Diabetes & Metabolism
DX: E78.1 Pure hyperglyceridemia (principal); E55.9 Vitamin D deficiency, unspecified; R79.89 Other specified abnormal findings of blood chemistry

== ENCOUNTER 2021-05-31 20:01 | Emergency (ER) | payer MEDICARE ==
[~2021-05-31] VITALS: Ht 180.3 cm; Wt 108.9 kg
[2021-05-31 20:30] VITALS: BP 129/77
[2021-05-31] MEDS ORDERED: SEPTDS PO (23:01)
== END 2021-05-31 23:39 | disposition home or self-care (01) ==
LOC: ED 20:01
DX: L02.213 Cutaneous abscess of chest wall (principal)

== ENCOUNTER 2022-01-29 12:47 | Emergency (ER) | payer OTHER ==
[~2022-01-29] VITALS: Wt 117.9 kg
[~2022-01-29 12:47] MED LIST changes: +SEPTDS PO
[2022-01-29 13:10] VITALS: BP 180/95
== END 2022-01-29 14:42 | disposition left against medical advice (07) ==
LOC: ED 12:47
DX: Z53.21 Procedure and treatment not carried out due to patient leaving prior to being seen by health care provider (principal)

== ENCOUNTER → 2022-03-01 | Outpatient (CLI) | payer OTHER ==
[~2022-03-01] MED LIST changes: +CYCLOBENZAPRINE5 M3 PO; +JARDIANCE25 MG PO; +TAMSULOSIN HCL0.4 MG PO; +VICTOZA 2-0.6 MG/0.1 SQ; +VOLTAREN50 M1 PO; +ZYRTEC10 M3 PO
== END | disposition home or self-care (01) ==
LOC: CARD 01:37
PROVIDERS: ATTEND Internal Medicine
DX: R07.9 Chest pain, unspecified (principal); I10 Essential (primary) hypertension; I25.10 Atherosclerotic heart disease of native coronary artery without angina pectoris

== ENCOUNTER 2022-05-08 18:32 | Emergency (ER) | payer MEDICARE ==
[2022-05-08 18:53] VITALS: BP 139/87
[2022-05-08] MEDS ORDERED: NAPROSYN500 MG PO (22:37)
[2022-05-08] MEDS ORDERED: HYDROCODONE-AC1 EAC1 PO (22:37)
== END 2022-05-08 22:50 | disposition home or self-care (01) ==
LOC: ED 18:32
DX: M25.552 Pain in left hip (principal); M25.551 Pain in right hip; M25.562 Pain in left knee; M25.561 Pain in right knee; Z88.0 Allergy status to penicillin; Z79.899 Other long term (current) drug therapy; Z90.89 Acquired absence of other organs; Z90.49 Acquired absence of other specified parts of digestive tract; Z98.890 Other specified postprocedural states

== ENCOUNTER 2022-07-15 13:31 | Emergency (ER) | payer MEDICARE ==
[~2022-07-15] VITALS: Ht 177.8 cm; Wt 130.6 kg
[~2022-07-15 13:31] MED LIST changes: +'CLONIDINE0.1 MG PO; +HYDROCODONE-AC1 EAC1 PO
[2022-07-15 14:25] VITALS: BP 138/74
[2022-07-15 14:56] LABS: HEMATOCRIT 48.4 % (42.0-52.0); MEAN CELL VOLUME 86.7 fl (80.0-94.0); MEAN CORPUSCULAR HGB CONC 32.2 g/dl (33.0-37.0); MEAN PLATELET VOLUME 9.3 fl (9.6-12.3); PLATELET COUNT AUTOMATED 303 10*3/uL (130-400); RED BLOOD COUNT 5.58 10*6/uL (4.50-5.90); RED CELL DISTRI WIDTH 12.9 % (0-14.5); WHITE BLOOD COUNT 8.9 10*3/uL (4.8-10.8)
[2022-07-15 15:01] LABS: MANUAL DIFF REFLEX YES
[2022-07-15 15:11] LABS: ACT PARTIAL THROMBO TIME 27.6 SECONDS (20.0-32.1); INTERNATIONAL NORM RATIO 1.1 (2.0-3.5)
[2022-07-15 15:14] LABS: ALKALINE PHOSPHATASE 56 U/L (45-117); BUN 25 mg/dl (7-24); CHLORIDE 104 mmol/L (98-107); CREATININE 0.99 mg/dL (0.70-1.30); POTASSIUM 4.2 mmol/L (3.5-5.1); SGOT/AST 30 IU/L (3-35); SGPT/ALT 73 U/L (12-78); SODIUM 139 mmol/L (136-145)
[2022-07-15 15:45] LABS: ATYPICAL LYMPHS 3 % (0-0); BASOPHILS 1 % (0-1); BURR CELLS FEW; PLATELET SUFFICIENCY NORMAL (NORMAL); TOTAL CELLS COUNTED 100 #CELLS
== END 2022-07-15 15:53 | disposition home or self-care (01) ==
LOC: ED 13:31
PROVIDERS: Emergency Medicine
DX: M79.652 Pain in left thigh (principal); Z88.0 Allergy status to penicillin; Z79.899 Other long term (current) drug therapy; Z90.49 Acquired absence of other specified parts of digestive tract; Z90.89 Acquired absence of other organs; Z98.890 Other specified postprocedural states

== ENCOUNTER 2022-09-15 01:01 | Emergency (ER) | payer MEDICARE, OTHER ==
[~2022-09-15] VITALS: Ht 177.8 cm; Wt 120.2 kg
[2022-09-15 01:21] VITALS: BP 142/71
[2022-09-15 01:45] LABS: BASO # 0.1 10*3/uL (0.0-0.1); BASO % 0.6 % (0.0-1.0); EOS # 0.5 10*3/uL (0.0-0.4); EOS % 6.2 % (1.0-4.0); HEMATOCRIT 48.1 % (42.0-52.0); LYMPH # 2.8 10*3/uL (1.3-4.4); LYMPH % 32.3 % (27.0-41.0); MEAN CELL VOLUME 85.1 fl (80.0-94.0); MEAN CORPUSCULAR HGB CONC 32.8 g/dl (33.0-37.0); MEAN PLATELET VOLUME 9.3 fl (9.6-12.3); MONO # 0.6 10*3/uL (0.1-1.0); MONO % 7.3 % (3.0-9.0); NEUT # 4.6 10*3/uL (2.3-7.9); PLATELET COUNT AUTOMATED 245 10*3/uL (130-400); RED BLOOD COUNT 5.65 10*6/uL (4.50-5.90); RED CELL DISTRI WIDTH 13.2 % (0-14.5); WHITE BLOOD COUNT 8.7 10*3/uL (4.8-10.8)
[2022-09-15 01:58] LABS: ACT PARTIAL THROMBO TIME 26.6 SECONDS (20.0-32.1); INTERNATIONAL NORM RATIO 1.1 (2.0-3.5)
[2022-09-15 02:01] LABS: ALKALINE PHOSPHATASE 58 U/L (46-116); BUN 24 mg/dl (9-23); CHLORIDE 104 mmol/L (98-107); CPK 120 U/L (34-171); POTASSIUM 3.8 mmol/L (3.4-5.1); SGPT/ALT 30 U/L (10-49)
[2022-09-15] MEDS ORDERED: PREDNISONE20 M1 PO (02:35)
[2022-09-15] MEDS ORDERED: CYCLOBENZAPRINE10 MG PO (02:50)
== END 2022-09-15 03:08 | disposition home or self-care (01) ==
LOC: ED 01:01
PROVIDERS: Family Medicine
DX: G51.0 Bell's palsy (principal); Z88.0 Allergy status to penicillin; Z91.048 Other nonmedicinal substance allergy status; Z90.49 Acquired absence of other specified parts of digestive tract; Z98.890 Other specified postprocedural states; Z87.891 Personal history of nicotine dependence

== ENCOUNTER → 2022-09-20 | Outpatient (CLI) | payer MEDICARE, OTHER ==
[~2022-09-20] MED LIST changes: +PREDNISONE20 M1 PO
[2022-09-20 15:17] LABS: BASO # 0.1 10*3/uL (0.0-0.1); BASO % 0.6 % (0.0-1.0); EOS # 0.2 10*3/uL (0.0-0.4); EOS % 1.9 % (1.0-4.0); HEMATOCRIT 51.3 % (42.0-52.0); LYMPH # 2.2 10*3/uL (1.3-4.4); LYMPH % 25.5 % (27.0-41.0); MEAN CELL VOLUME 84.5 fl (80.0-94.0); MEAN CORPUSCULAR HGB 28.2 pg (27.0-31.0); MEAN CORPUSCULAR HGB CONC 33.3 g/dl (33.0-37.0); MEAN PLATELET VOLUME 9.5 fl (9.6-12.3); MONO # 0.5 10*3/uL (0.1-1.0); MONO % 5.9 % (3.0-9.0); NEUT # 5.5 10*3/uL (2.3-7.9); NEUT % 64.8 % (47.0-73.0); PLATELET COUNT AUTOMATED 267 10*3/uL (130-400); RED BLOOD COUNT 6.07 10*6/uL (4.50-5.90); RED CELL DISTRI WIDTH 13.2 % (0-14.5); WHITE BLOOD COUNT 8.4 10*3/uL (4.8-10.8)
[2022-09-20 16:42] LABS: ALKALINE PHOSPHATASE 56 U/L (46-116); BUN 30 mg/dl (9-23); CHLORIDE 102 mmol/L (98-107); CHOLESTEROL 215 mg/dL (<200); FREE T4 1.17 ng/dl (0.89-1.76); LDL CHOLESTEROL 100 mg/dL (9-159); POTASSIUM 4.1 mmol/L (3.4-5.1); SGPT/ALT 24 U/L (10-49); THYROID STIM HORMONE (HS) 1.702 uIU/ml (0.550-4.780); TOTAL PROTEIN 7.2 gm/dL (6.0-8.0); TRIGLYCERIDES 400 mg/dl (<150)
[2022-09-20 17:05] LABS: VITAMIN D, 25-HYDROXY 26.4 ng/mL (30-100)
== END | disposition home or self-care (01) ==
LOC: LAB 14:53
PROVIDERS: ATTEND Internal Medicine
DX: Z12.5 Encounter for screening for malignant neoplasm of prostate (principal); Z13.89 Encounter for screening for other disorder; E11.65 Type 2 diabetes mellitus with hyperglycemia; E11.40 Type 2 diabetes mellitus with diabetic neuropathy, unspecified; E11.22 Type 2 diabetes mellitus with diabetic chronic kidney disease; N18.9 Chronic kidney disease, unspecified; E55.9 Vitamin D deficiency, unspecified; Z13.0 Encounter for screening for diseases of the blood and blood-forming organs and certain disorders involving the immune mechanism; Z13.820 Encounter for screening for osteoporosis; Z13.1 Encounter for screening for diabetes mellitus; Z13.21 Encounter for screening for nutritional disorder; Z13.220 Encounter for screening for lipoid disorders; Z13.228 Encounter for screening for other metabolic disorders; Z13.29 Encounter for screening for other suspected endocrine disorder; Z13.6 Encounter for screening for cardiovascular disorders; Z13.9 Encounter for screening, unspecified

== ENCOUNTER → 2023-02-18 | Outpatient (CLI) | payer OTHER | END | disposition home or self-care (01) | LOC: RESCLI 02:59 | PROVIDERS: ATTEND Family Medicine | DX: E11.65 Type 2 diabetes mellitus with hyperglycemia (principal); I10 Essential (primary) hypertension; K21.9 Gastro-esophageal reflux disease without esophagitis; G89.29 Other chronic pain; E78.5 Hyperlipidemia, unspecified; M25.569 Pain in unspecified knee; M25.519 Pain in unspecified shoulder; G25.81 Restless legs syndrome; N40.0 Benign prostatic hyperplasia without lower urinary tract symptoms; Z79.4 Long term (current) use of insulin; Z79.899 Other long term (current) drug therapy; Z87.891 Personal history of nicotine dependence; Z88.0 Allergy status to penicillin ==

== ENCOUNTER 2023-04-09 22:31 | Emergency (ER) | payer OTHER ==
[~2023-04-09] VITALS: Ht 177.8 cm; Wt 120.2 kg
[2023-04-09 22:47] VITALS: BP 184/89
[2023-04-09] MEDS ORDERED: PREDNISONE20 M1 PO (23:36)
== END 2023-04-09 23:46 | disposition home or self-care (01) ==
LOC: ED 22:31
DX: G89.29 Other chronic pain (principal); M25.569 Pain in unspecified knee; M25.559 Pain in unspecified hip; I10 Essential (primary) hypertension; K21.9 Gastro-esophageal reflux disease without esophagitis; E11.9 Type 2 diabetes mellitus without complications; E78.00 Pure hypercholesterolemia, unspecified; J45.909 Unspecified asthma, uncomplicated; Z86.73 Personal history of transient ischemic attack (TIA), and cerebral infarction without residual deficits; F41.9 Anxiety disorder, unspecified; Z88.2 Allergy status to sulfonamides; Z88.8 Allergy status to other drugs, medicaments and biological substances; Z90.49 Acquired absence of other specified parts of digestive tract; Z96.652 Presence of left artificial knee joint; Z98.890 Other specified postprocedural states

== ENCOUNTER → 2023-08-13 | Outpatient (CLI) | payer OTHER ==
[2023-08-13 17:14] LABS: BASO % 0.5 % (0.0-1.0); EOS # 0.2 10*3/uL (0.0-0.4); EOS % 3.1 % (1.0-4.0); HEMATOCRIT 50.3 % (42.0-52.0); LYMPH % 25.9 % (27.0-41.0); MEAN CORPUSCULAR HGB 29.4 pg (27.0-31.0); MEAN CORPUSCULAR HGB CONC 33.8 g/dl (33.0-37.0); MEAN PLATELET VOLUME 9.5 fl (9.6-12.3); MONO # 0.7 10*3/uL (0.1-1.0); MONO % 8.7 % (3.0-9.0); NEUT # 4.7 10*3/uL (2.3-7.9); NEUT % 61.3 % (47.0-73.0); PLATELET COUNT AUTOMATED 205 10*3/uL (130-400); RED BLOOD COUNT 5.78 10*6/uL (4.50-5.90); RED CELL DISTRI WIDTH 12.9 % (0-14.5); WHITE BLOOD COUNT 7.7 10*3/uL (4.8-10.8)
[2023-08-13 17:41] LABS: ALKALINE PHOSPHATASE 63 U/L (46-116); BUN 28 mg/dl (9-23); CHLORIDE 105 mmol/L (98-107); CHOLESTEROL 204 mg/dL (<200); CPK 103 U/L (34-171); FREE T4 1.14 ng/dl (0.89-1.76); LDL CHOLESTEROL 96 mg/dL (9-159); POTASSIUM 4.7 mmol/L (3.4-5.1); SGPT/ALT 27 U/L (5-49); TOTAL PROTEIN 7.1 gm/dL (6.0-8.0); TRIGLYCERIDES 363 mg/dl (<150); VITAMIN D, 25-HYDROXY 27.9 ng/mL (30-100)
== END | disposition home or self-care (01) ==
LOC: LAB 16:45
PROVIDERS: ATTEND Internal Medicine
DX: Z12.5 Encounter for screening for malignant neoplasm of prostate (principal); Z13.0 Encounter for screening for diseases of the blood and blood-forming organs and certain disorders involving the immune mechanism; Z13.1 Encounter for screening for diabetes mellitus; Z13.21 Encounter for screening for nutritional disorder; Z13.220 Encounter for screening for lipoid disorders; Z13.228 Encounter for screening for other metabolic disorders; Z13.29 Encounter for screening for other suspected endocrine disorder; Z13.6 Encounter for screening for cardiovascular disorders; Z13.89 Encounter for screening for other disorder; Z13.9 Encounter for screening, unspecified; E11.65 Type 2 diabetes mellitus with hyperglycemia; I10 Essential (primary) hypertension; E78.2 Mixed hyperlipidemia; E55.9 Vitamin D deficiency, unspecified

== ENCOUNTER 2023-09-05 13:09 | Emergency (ER) | payer OTHER ==
[~2023-09-05] VITALS: Ht 177.8 cm; Wt 117.9 kg
[2023-09-05 14:10] VITALS: BP 149/79
[2023-09-05 16:20] LABS: BILIRUBIN Negative (Negative); BLOOD Negative (Negative); CLARITY Clear (Clear); COLOR Yellow (Yellow); GLUCOSE 3+ (Negative); KETONE Trace (Negative); LEUKO ESTERASE Negative (Negative); NITRITE Negative (Negative); SPECIFIC GRAVITY >= 1.030 (1.001-1.030); UROBILINOGEN 0.2 E.U./dl (0.0-1.0)
[2023-09-05 16:28] LABS: EPITHELIAL CELLS 0-2; MUCOUS 2+
== END 2023-09-05 16:58 | disposition home or self-care (01) ==
LOC: ED 13:09
PROVIDERS: Nurse Practitioner Family
DX: R35.0 Frequency of micturition (principal); M17.12 Unilateral primary osteoarthritis, left knee; E11.9 Type 2 diabetes mellitus without complications; K21.9 Gastro-esophageal reflux disease without esophagitis; J45.909 Unspecified asthma, uncomplicated; F41.9 Anxiety disorder, unspecified; Z86.73 Personal history of transient ischemic attack (TIA), and cerebral infarction without residual deficits; I10 Essential (primary) hypertension; Z88.0 Allergy status to penicillin; Z88.8 Allergy status to other drugs, medicaments and biological substances; Z90.49 Acquired absence of other specified parts of digestive tract; Z96.652 Presence of left artificial knee joint; Z98.890 Other specified postprocedural states

== ENCOUNTER 2024-03-24 21:14 | Emergency (ER) | payer OTHER ==
[~2024-03-24] VITALS: Ht 177.8 cm; Wt 123.4 kg
[2024-03-24 21:27] VITALS: BP 101/46
[2024-03-24 22:22] LABS: POTASSIUM 4.4 mmol/L (3.4-5.1)
[2024-03-24] MEDS ORDERED: ACETAMINOPHEN 325 MG TAB PO ONE (23:20)
[2024-03-25] MEDS ORDERED: MEDROL DOSEPAK4 MG PO (00:55)
[2024-03-25] MEDS ORDERED: CYCLOBENZAPRINE5 M3 PO (00:55)
[2024-03-25] MEDS ORDERED: Acetaminophen/Oxycodone 5 MG/325 MG TABLET PO ONE (00:55)
== END 2024-03-25 01:08 | disposition home or self-care (01) ==
LOC: ED 21:14
PROVIDERS: Internal Medicine
DX: M16.11 Unilateral primary osteoarthritis, right hip (principal); M54.50 Low back pain, unspecified; M25.511 Pain in right shoulder; I10 Essential (primary) hypertension; K21.9 Gastro-esophageal reflux disease without esophagitis; E11.9 Type 2 diabetes mellitus without complications; E78.00 Pure hypercholesterolemia, unspecified; J45.909 Unspecified asthma, uncomplicated; Z86.73 Personal history of transient ischemic attack (TIA), and cerebral infarction without residual deficits; F41.9 Anxiety disorder, unspecified; Z88.0 Allergy status to penicillin; Z96.652 Presence of left artificial knee joint; Z98.890 Other specified postprocedural states; Z90.49 Acquired absence of other specified parts of digestive tract

== ENCOUNTER 2024-05-05 20:10 | Emergency (ER) | payer OTHER ==
[~2024-05-05] VITALS: Ht 177.8 cm; Wt 117.9 kg
[2024-05-05 20:57] LABS: BASO # 0.1 10*3/uL (0.0-0.1); BASO % 0.6 % (0.0-1.0); EOS # 0.5 10*3/uL (0.0-0.4); EOS % 6.7 % (1.0-4.0); LYMPH # 2.4 10*3/uL (1.3-4.4); LYMPH % 30.4 % (27.0-41.0); MEAN CELL VOLUME 86.6 fl (80.0-94.0); MEAN CORPUSCULAR HGB 28.6 pg (27.0-31.0); MEAN CORPUSCULAR HGB CONC 33.1 g/dl (33.0-37.0); MEAN PLATELET VOLUME 9.7 fl (9.6-12.3); MONO # 0.6 10*3/uL (0.1-1.0); MONO % 7.6 % (3.0-9.0); NEUT # 4.2 10*3/uL (2.3-7.9); NEUT % 53.7 % (47.0-73.0); PLATELET COUNT AUTOMATED 219 10*3/uL (130-400); RED BLOOD COUNT 5.66 10*6/uL (4.50-5.90); RED CELL DISTRI WIDTH 13.2 % (0-14.5); WHITE BLOOD COUNT 7.9 10*3/uL (4.8-10.8)
[2024-05-05] MEDS ORDERED: Acetaminophen/Oxycodone 5 MG/325 MG TABLET PO ONE (22:20)
[2024-05-05] MEDS ORDERED: Ondansetron Hydrochloride 4 MG TAB SL ONE (22:20)
== END 2024-05-05 22:22 | disposition home or self-care (01) ==
LOC: ED 20:10
PROVIDERS: Internal Medicine
DX: G89.29 Other chronic pain (principal); M25.562 Pain in left knee; I10 Essential (primary) hypertension; K21.9 Gastro-esophageal reflux disease without esophagitis; E11.9 Type 2 diabetes mellitus without complications; E78.00 Pure hypercholesterolemia, unspecified; J45.909 Unspecified asthma, uncomplicated; Z86.73 Personal history of transient ischemic attack (TIA), and cerebral infarction without residual deficits; F41.9 Anxiety disorder, unspecified; Z88.0 Allergy status to penicillin; Z88.8 Allergy status to other drugs, medicaments and biological substances; Z98.890 Other specified postprocedural states; Z90.49 Acquired absence of other specified parts of digestive tract

== ENCOUNTER 2024-10-08 11:06 | Emergency (ER) | payer OTHER ==
[~2024-10-08] VITALS: Ht 180.3 cm; Wt 117.9 kg
[~2024-10-08 11:06] MED LIST changes: +ELIQUIS5 M1 PO; +ELIQUIS5 M2 PO
[2024-10-08 11:21] VITALS: BP 136/80
[2024-10-08] MEDS ORDERED: Acetaminophen/Oxycodone 5 MG/325 MG TABLET PO ONE (11:30)
[2024-10-08] MEDS ORDERED: SODIUM CHLORIDE 0.9% 1,000 ML IV ONE (11:30)
[2024-10-08 11:44] LABS: BASO % 0.5 % (0.0-1.0); EOS # 0.3 10*3/uL (0.0-0.4); EOS % 3.2 % (1.0-4.0); HEMATOCRIT 50.5 % (42.0-52.0); MEAN CELL VOLUME 87.7 fl (80.0-94.0); MEAN CORPUSCULAR HGB CONC 31.9 g/dl (33.0-37.0); MEAN PLATELET VOLUME 9.2 fl (9.6-12.3); MONO # 1.1 10*3/uL (0.1-1.0); MONO % 13.7 % (3.0-9.0); NEUT % 60.4 % (47.0-73.0); PLATELET COUNT AUTOMATED 238 10*3/uL (130-400); RED BLOOD COUNT 5.76 10*6/uL (4.50-5.90); RED CELL DISTRI WIDTH 13.7 % (0-14.5); WHITE BLOOD COUNT 8.3 10*3/uL (4.8-10.8)
[2024-10-08 12:12] LABS: BUN 21 mg/dl (9-23); CHLORIDE 101 mmol/L (98-107); POTASSIUM 4.5 mmol/L (3.4-5.1)
[2024-10-08] MEDS ORDERED: INSULIN REGULAR, HUMAN 1 UNIT/0.01 ML IV ONE (12:55)
[2024-10-08] MEDS ORDERED: PERCOCET 5-3251 EACH PO (14:18)
== END 2024-10-08 14:25 | disposition home or self-care (01) ==
LOC: ED 11:06
PROVIDERS: Emergency Medicine
DX: M54.50 Low back pain, unspecified (principal); M25.552 Pain in left hip; M25.562 Pain in left knee; E11.65 Type 2 diabetes mellitus with hyperglycemia; I10 Essential (primary) hypertension; E78.5 Hyperlipidemia, unspecified; K21.9 Gastro-esophageal reflux disease without esophagitis; J45.909 Unspecified asthma, uncomplicated; F41.9 Anxiety disorder, unspecified; Z86.73 Personal history of transient ischemic attack (TIA), and cerebral infarction without residual deficits; Z88.0 Allergy status to penicillin; Z88.8 Allergy status to other drugs, medicaments and biological substances; Z98.890 Other specified postprocedural states; Z96.652 Presence of left artificial knee joint; Z90.49 Acquired absence of other specified parts of digestive tract

== ENCOUNTER 2024-11-04 18:09 | Emergency (ER) | payer OTHER ==
[~2024-11-04] VITALS: Ht 177.8 cm; Wt 120.2 kg
[~2024-11-04 18:09] MED LIST changes: +PERCOCET 5-3251 EACH PO
[2024-11-04 18:36] VITALS: BP 105/49
[2024-11-04 19:03] LABS: BASO # 0.1 10*3/uL (0.0-0.1); BASO % 0.6 % (0.0-1.0); EOS # 0.4 10*3/uL (0.0-0.4); EOS % 5.3 % (1.0-4.0); HEMATOCRIT 53.4 % (42.0-52.0); MEAN CELL VOLUME 85.9 fl (80.0-94.0); MEAN CORPUSCULAR HGB 27.7 pg (27.0-31.0); MEAN CORPUSCULAR HGB CONC 32.2 g/dl (33.0-37.0); MEAN PLATELET VOLUME 9.9 fl (9.6-12.3); MONO # 0.6 10*3/uL (0.1-1.0); MONO % 8.1 % (3.0-9.0); NEUT # 4.5 10*3/uL (2.3-7.9); NEUT % 57.7 % (47.0-73.0); PLATELET COUNT AUTOMATED 247 10*3/uL (130-400); RED BLOOD COUNT 6.22 10*6/uL (4.50-5.90); RED CELL DISTRI WIDTH 13.6 % (0-14.5); WHITE BLOOD COUNT 7.8 10*3/uL (4.8-10.8)
[2024-11-04 19:27] LABS: BUN 24 mg/dl (9-23); CHLORIDE 99 mmol/L (98-107)
[2024-11-04] MEDS ORDERED: VIBRAMYCIN100 MG PO (19:41)
[2024-11-04] MEDS ORDERED: Doxycycline Hyclate 100 MG CAP PO ONE (19:45)
== END 2024-11-04 19:56 | disposition home or self-care (01) ==
LOC: ED 18:09
PROVIDERS: Physician Assistant Medical
DX: L03.116 Cellulitis of left lower limb (principal); E11.9 Type 2 diabetes mellitus without complications; F41.9 Anxiety disorder, unspecified; R60.0 Localized edema; Z88.0 Allergy status to penicillin; Z91.048 Other nonmedicinal substance allergy status; Z79.899 Other long term (current) drug therapy; Z79.4 Long term (current) use of insulin; Z90.49 Acquired absence of other specified parts of digestive tract; Z86.718 Personal history of other venous thrombosis and embolism

== ENCOUNTER 2024-11-21 01:30 | Emergency (ER) | payer OTHER ==
[2024-11-21 01:43] VITALS: BP 154/77
[2024-11-21] MEDS ORDERED: MEPERIDINE HYDROCHLORIDE 25 MG/1 ML VIAL IM ONE (01:50)
[2024-11-21] MEDS ORDERED: Ketorolac Tromethamine 30 MG/ML VIAL IM ONE (01:50)
== END 2024-11-21 03:03 | disposition home or self-care (01) ==
LOC: ED 01:30
DX: G89.29 Other chronic pain (principal); M54.6 Pain in thoracic spine; I10 Essential (primary) hypertension; K21.9 Gastro-esophageal reflux disease without esophagitis; E11.9 Type 2 diabetes mellitus without complications; J45.909 Unspecified asthma, uncomplicated; F41.9 Anxiety disorder, unspecified; E78.00 Pure hypercholesterolemia, unspecified; Z86.73 Personal history of transient ischemic attack (TIA), and cerebral infarction without residual deficits; Z88.0 Allergy status to penicillin; Z88.8 Allergy status to other drugs, medicaments and biological substances; Z98.890 Other specified postprocedural states; Z90.49 Acquired absence of other specified parts of digestive tract

== ENCOUNTER 2024-12-23 23:32 | Emergency (ER) | payer OTHER ==
[~2024-12-23] VITALS: Ht 180.3 cm; Wt 117.0 kg
[2024-12-23 23:42] VITALS: BP 121/106
[2024-12-24] MEDS ORDERED: methylPREDNISolone sod succ 125 MG VIAL IM ONE (00:30)
[2024-12-24] MEDS ORDERED: ZITHROMAX250 MG PO (00:31)
== END 2024-12-24 01:03 | disposition home or self-care (01) ==
LOC: ED 23:32
DX: J40 Bronchitis, not specified as acute or chronic (principal); Z88.0 Allergy status to penicillin; Z91.048 Other nonmedicinal substance allergy status; Z79.899 Other long term (current) drug therapy; Z79.4 Long term (current) use of insulin; Z90.49 Acquired absence of other specified parts of digestive tract

== ENCOUNTER 2025-02-01 19:10 | Emergency (ER) | payer OTHER ==
[~2025-02-01] VITALS: Ht 177.8 cm; Wt 117.0 kg
[2025-02-01 19:20] VITALS: BP 130/71
[2025-02-01] MEDS ORDERED: VICTOZA 3-0.6 MG/0.1 SC (19:30)
[2025-02-01] MEDS ORDERED: VOLTAREN50 M1 PO (19:31)
[2025-02-01] MEDS ORDERED: ELIQUIS5 M1 PO (19:31)
[2025-02-01 19:43] LABS: BASO # 0.1 10*3/uL (0.0-0.1); BASO % 0.7 % (0.0-1.0); EOS # 0.3 10*3/uL (0.0-0.4); EOS % 3.8 % (1.0-4.0); HEMATOCRIT 52.5 % (42.0-52.0); MEAN CELL VOLUME 84.1 fl (80.0-94.0); MEAN CORPUSCULAR HGB 27.7 pg (27.0-31.0); MEAN PLATELET VOLUME 9.5 fl (9.6-12.3); MONO # 0.7 10*3/uL (0.1-1.0); MONO % 8.1 % (3.0-9.0); NEUT # 4.9 10*3/uL (2.3-7.9); NEUT % 57.4 % (47.0-73.0); PLATELET COUNT AUTOMATED 238 10*3/uL (130-400); RED BLOOD COUNT 6.24 10*6/uL (4.50-5.90); RED CELL DISTRI WIDTH 13.2 % (0-14.5); WHITE BLOOD COUNT 8.5 10*3/uL (4.8-10.8)
[2025-02-01 20:10] LABS: BUN 27 mg/dl (9-23); CHLORIDE 97 mmol/L (98-107); POTASSIUM 4.2 mmol/L (3.4-5.1)
[2025-02-01] MEDS ORDERED: INSULIN REGULAR, HUMAN 1 UNIT/0.01 ML SC ONE (21:05)
[2025-02-01] MEDS ORDERED: Enoxaparin Sodium 100 MG/ML SYR SC ONE (21:05)
== END 2025-02-01 21:30 | disposition home or self-care (01) ==
LOC: ED 19:10
PROVIDERS: Physician Assistant Medical
DX: R60.0 Localized edema (principal); R79.1 Abnormal coagulation profile; I10 Essential (primary) hypertension; E11.9 Type 2 diabetes mellitus without complications; K21.9 Gastro-esophageal reflux disease without esophagitis; J45.909 Unspecified asthma, uncomplicated; F41.9 Anxiety disorder, unspecified; Z79.4 Long term (current) use of insulin; Z79.899 Other long term (current) drug therapy; Z88.0 Allergy status to penicillin; Z98.890 Other specified postprocedural states

== ENCOUNTER 2025-08-16 20:51 | Emergency (ER) | payer OTHER ==
[~2025-08-16] VITALS: Ht 180.3 cm; Wt 117.9 kg
[~2025-08-16 20:51] MED LIST changes: +VICTOZA 3-0.6 MG/0.1 SC
[2025-08-16 23:22] LABS: BASO # 0.0 10*3/uL (0.0-0.1); BASO % 0.5 % (0.0-1.0); EOS # 0.2 10*3/uL (0.0-0.4); EOS % 3.2 % (1.0-4.0); MEAN CELL VOLUME 87.7 fl (80.0-94.0); MEAN CORPUSCULAR HGB 28.7 pg (27.0-31.0); MEAN PLATELET VOLUME 10.0 fl (9.6-12.3); MONO # 0.5 10*3/uL (0.1-1.0); MONO % 7.4 % (3.0-9.0); NEUT # 4.7 10*3/uL (2.3-7.9); NEUT % 64.6 % (47.0-73.0); NUCLEATED RED BLOOD CELL 0.0 % (0.0-0.0); NUCLEATED RED BLOOD CELL 0.0 10*3/uL (0.0-0.0); PLATELET COUNT AUTOMATED 228 10*3/uL (130-400); RED CELL DISTRI WIDTH 13.0 % (0-14.5)
[2025-08-16 23:49] LABS: BUN 31 mg/dl (9-23)
[2025-08-17] MEDS ORDERED: INSULIN REGULAR HUMAN 100 UNIT IV ONE (00:55)
[2025-08-17] MEDS ORDERED: SODIUM CHLORIDE 0.9% 1,000 ML IV ONE (00:55)
[2025-08-17] MEDS ORDERED: INSULIN REGULAR, HUMAN 1 UNIT/0.01 ML IV ONE (01:55)
[2025-08-17 05:52] VITALS: BP 155/62
[2025-08-17] MEDS ORDERED: ELIQUIS5 M1 PO (09:47)
== END 2025-08-17 09:59 | disposition home or self-care (01) ==
LOC: ED 20:51
PROVIDERS: Emergency Medicine
DX: I82.412 Acute embolism and thrombosis of left femoral vein (principal); Z88.0 Allergy status to penicillin; Z91.048 Other nonmedicinal substance allergy status; Z79.899 Other long term (current) drug therapy; Z90.49 Acquired absence of other specified parts of digestive tract